=== PATIENT | female | born 1990 | race Caucasian/White ===

== ENCOUNTER 2023-10-15 09:20 | Emergency (ER) | payer OTHER ==
[2023-10-15] MEDS ORDERED: Lorazepam 2 MG/ML VIAL ONE (09:46)
[2023-10-15] MEDS ORDERED: Famotidine/PF 20 mg/2ml Vial ONE (09:47)
[2023-10-15 10:15] LABS: #Monocytes 0.4 10x3/uL (0.0-1.1); #Neutrophils 6.9 10x3/uL (1.5-8.4); %Basophils 0.2 % (0.0-2.0); %Eosinophils 0.1 % (0.0-6.0); %Monocytes 4.6 % (0.0-10.0); %Neutrophils 72.8 % (40.0-75.0); Hematocrit 41.7 % (34.9-44.5); Hemoglobin 14.8 g/dL (12.0-15.5); Mean Corpuscular HGB CONC 35.5 g/dL (32.0-36.0); Mean Corpuscular Hemoglobin 32.2 pg (27.0-33.0); Mean Corpuscular Volume 90.8 fl (81.6-98.3); Mean Platelet Volume 9.1 fl (7.4-10.4); Platelet Count 197 10x3/uL (150-450); RBC Distribution Width 12.4 % (11.5-14.5); Red Blood Cell (RBC) Count 4.59 10x6/uL (3.90-5.03); White Blood Cell (WBC) Count 9.5 10x3/uL (3.5-10.5)
[2023-10-15 10:27] LABS: ALT (SGPT) 12 U/L (8-55); AST (SGOT) 18 U/L (5-34); Albumin 4.9 g/dL (3.5-5.0); Alcohol Less than 10.0 mg/dL (Less than 10); Alkaline Phosphatase 44 U/L (40-110); Anion Gap 19 mmol/L (10-20); BUN (Urea Nitrogen) 6 mg/dL (7.0-18.7); Bilirubin, Total 0.5 mg/dL (0.2-1.2); Calc. Creatinine Clearance 0 mL/min (70-130); Calcium 9.6 mg/dL (7.8-10.44); Carbon Dioxide 18 mmol/L (22-29); Chloride 106 mmol/L (98-107); Estimated GFR 107; Globulin 2.9 g/dL (2.4-3.5); Glucose 95 mg/dL (70-105); Potassium 3.9 mmol/L (3.5-5.1); Protein, Total 7.8 g/dL (6.0-8.3); Sodium 139 mmol/L (136-145)
[2023-10-15 10:33] LABS: Troponin I Less than 0.010 ng/mL (< 0.028)
[2023-10-15] MEDS ORDERED: Ondansetron ODT 4 MG TAB ONE (11:34)
== END 2023-10-15 11:37 | disposition home or self-care (01) ==
LOC: CSHERS 09:20
DX: R06.4 Hyperventilation (principal); R07.9 Chest pain, unspecified; F10.239 Alcohol dependence with withdrawal, unspecified; Y90.0 Blood alcohol level of less than 20 mg/100 ml
CPT/HCPCS: 80053; 80307; 84484; 85025; 93005; 96374; 96375; J2060; Q0162; S0028